=== PATIENT | male | born 1945 | race Caucasian/White ===

== ENCOUNTER → 2020-01-08 15:39 | Outpatient (BNVA) | payer MEDICARE, OTHER, SELFPAY | PROVIDERS: Family Provider Family Medicine; Visit Provider Nurse Practitioner Family | DX: Z11.59 Encounter for screening for other viral diseases (principal); Z20.828 Contact with and (suspected) exposure to other viral communicable diseases | CPT/HCPCS: 87635 ==

== ENCOUNTER 2020-01-10 12:06 | Emergency (ER) | payer MEDICARE, OTHER, SELFPAY ==
[2020-01-10 12:22] VITALS: BP 180/104; PULSE 82; RESP 20; TEMP 37.4; O2SAT 94; BMI 25.8
--- NOTE | 2020-01-10 12:30 | PC.NURSE ---
GENERALIZED BODY ACHES. STATES I HURT ALL OVER,NO ENERGY, TIRED ALL THE TIME.
[2020-01-10 12:45] VITALS: BP 177/110; PULSE 76; RESP 18; TEMP 37.4; O2SAT 94
--- NOTE | 2020-01-10 13:00 | XR_ITS ---
WS: [id number] XR chest 1V portable [id number] REASON FOR EXAM: cough, fever,SOB FINDINGS: Interstitial changes are noted bilaterally these are accentuated since previous exam and heard spect most likely bronchitis changes. The heart and mediastinum were normal. There is arteriosclerotic changes in the arch of the aorta. The hilum and apices are normal. No osseous abnormalities. XR/XR chest 1V portable [id number] IMPRESSION: Findings suggesting acute bronchitis.
--- NOTE | 2020-01-10 13:02 | W.ED.FEVER ---
HPI - Fever General: Chief Complaint: Fever Stated Complaint: FEVER/ FEELS SICK /TESTED FOR COVID TODAY Time Seen by Provider: 01/10/20 12:36 History of Present Illness: HPI Narrative: Patient is a 74-year-old gentleman who presents to the emergency department with fevers, generalized body aches, joint aches and feeling quite weak for about 5 or 6 days. Symptoms started shortly after he had multiple tick bites with a couple of ticks embedded in his skin which could not reach so slept overnight with it and had his son remove them the following day. He has also traveled out of state but is not aware of contact with anyone with COVID 19. He was tested 2 days ago for the COVID-19 in an outpatient clinic but has not received the results. MD elicited complaint: fever Onset (ago): day(s) (5) Context: recent travel Exacerbating factors: nothing Relieving factors: nothing Associated symptoms: Reports chills, chest pain, cough (he also has cough at baseline) and myalgias; Deny flank pain, dysuria, headache(s), nasal congestion, nausea, night sweats, rash, rhinorrhea or short of breath Review of Systems General: Reports: 10 or more systems reviewed and unremarkable except in HPI and below Const: Reports: chills; Denies: night sweats Eyes: Denies: change in vision or blurry vision ENMT: Denies: nasal congestion Card: Reports: chest pain; Denies: palpitations, irregular heart rhythm, edema or swelling of feet/ankles Resp: Denies: dyspnea, productive cough or non-productive cough GI: Denies: nausea : Denies: flank pain, dysuria, urinary frequency, urinary urgency or urinary hesitancy Musc: Reports: joint pain and muscle cramps; Denies: neck pain, back pain or extremity swelling Skin/Breast: Denies: rash, pruritus or erythema Neuro: Denies: headache(s), numbness in extremities or weakness in extremities Endo: Denies: polyuria, polydipsia or tired all the time PFSH ED PFSH: Social History Smoking and tobacco status: current every day smoker Physical Exam Const: COMMON NORMALS: no acute distress, average body habitus, patient oriented x3, no limitations, healthy appearing, alert and well nourished HENMT: COMMON NORMALS: normocephalic, atraumatic and moist oral mucous membranes HEAD & SCALP: normocephalic and atraumatic Eye: COMMON NORMALS: Equal, round and reactive pupils present, EOMs intact bilaterally, conjunctivae normal and no scleral icterus CONJUNCTIVA: Yes conjunctivae normal PUPIL: Yes Equal, round and reactive pupils present Neck/C-Spine: COMMON NORMALS: full ROM, supple, no meningeal signs, no JVD and No carotid bruits Chest: COMMONS NORMALS: normal inspection of the chest Resp: COMMON NORMALS: normal respiratory effort, No retractions, No use of accessory muscles and percussion normal AUSCULTATION: rales bilateral 1/[address] up PERCUSSION: percussion normal Cardio: COMMON NORMALS: no JVD, regular rate, regular rhythm, S1 normal heart sound present, S2 normal heart sound present, No gallops present (Cardio), No clicks present (Cardio), No murmurs present (Cardio), No rub (Cardio) and Peripheral pulses 2+ throughout RATE: regular rate RHYTHM: regular rhythm HEART SOUNDS: S1 normal heart sound present and S2 normal heart sound present PERIPHERAL PULSES: Peripheral pulses 2+ throughout GI: COMMON NORMALS: Normal to inspection, nondistended, normoactive bowel sounds present, Soft to palpation, non-tender, No hepatosplenomegaly present, no masses and no bruits PALPATION: Yes Soft to palpation and Yes No hepatosplenomegaly present : COMMON NORMALS: Yes no CVA tenderness BLADDER/KIDNEY EXAM: Yes no CVA tenderness Back/Pelvis: COMMON NORMALS: no CVA tenderness Extremity: COMMON NORMALS: normal to inspection, full ROM, capillary refill normal, no calf tenderness and no pedal edema Neuro: COMMON NORMALS: patient oriented x3 SENSORIUM/ORIENTATION: Yes alert MENINGEAL SIGNS: Yes no meningeal signs Skin: COMMON NORMALS: no rashes or lesions noted, no wounds, turgor normal, no jaundice, no petechiae and no mottling GENERAL SKIN EXAM: no rashes or lesions noted and turgor normal Course Reevaluation(s): Reevaluation #1: His lab and imaging findings with him. Negative influenza, negative chest x-ray. His lab work however is pretty consistent with a tickborne illness-leukopenia, thrombocytopenia, elevated liver enzymes. He will be treated with doxycycline while we wait for the results of the tick panel. He is strongly advised to return for any concerns especially if his symptoms worsen. Patient and his daughter voiced understanding and all questions answered. Time: 15:22 Vital Signs: Vital signs: Vital Signs Temperature 98.7 F 01/10/20 15:36 Pulse Rate 68 01/10/20 15:36 Respiratory Rate 16 01/10/20 15:36 Blood Pressure 160/87 01/10/20 15:36 Pulse Oximetry 95 01/10/20 15:36 MDM - Fever MDM Narrative: Medical decision making narrative: 74-year-old gentleman who presents with generalized body aches, myalgias, arthralgias, low-grade fever. He had been tested for COVID-19 2 days ago but the results are still not available. He has recent exposure to tick bites and his lab values are suggestive of a tickborne illness with leukopenia, thrombocytopenia, and elevated liver enzymes. He is being treated as a case of tickborne illness with oral doxycycline. Tick panel was sent off he will be called with the results of his labs. He is advised to follow-up with his primary care provider or return for any concerns Medical Records: Attestation: I reviewed the patient's medical records. Lab Data: Attestation: I reviewed the patient's lab results. Labs: Lab Results 01/10/20 01/10/20 01/10/20 Range/Units 13:10 13:10 13:10 WBC 2.7 L (4.0-10.0) 10^3/ uL RBC 4.76 (4.1-5.3) 10^6/u L Hgb 15.3 (11.7-16.6) g/dL Hct 44.4 (42.0-52.0) % MCV 93.3 (80-94) fL MCH 32.1 (28.0-34.0) pg MCHC 34.5 (30.0-36.0) g/dL RDW 14.6 (12.1-15.1) % Plt Count 110 L (130-400) 10^3/c mm MPV 10.4 (7.4-10.4) fL Nucleated RBC % (a uto) 0 % Total Counted 100 (0-100) Atypical Lymphs % 16.0 H (0-5) % Segmented Neutroph ils 100 % Abs Segm Neuts (Ma n) 2.7 (1.6-7.1) 10/cmm Absolute Lymphocyt es 0.8 L (1.2-3.4) 10^3/c mm Lymphocytes (Manua l) 14 % Monocytes (Manual) 3.0 % Absolute Monocytes 0.1 (0.1-0.6) 10^3/c mm Nucleated RBCs # 0.0 /100WBC Platelet Estimate Decreased (Normal) Giant Platelets Trace Sodium 131 L (136-145) mmol/L Potassium 4.0 (3.5-5.1) mmol/L Chloride 93 L (98-107) mmol/L Carbon Dioxide 25 (22-29) mmol/L Anion Gap 17.0 (5-19) BUN 17 (8-23) mg/dL Creatinine 0.7 (0.7-1.2) mg/dL GFR Calculation Not Reportable Glucose 131 H (65-115) mg/dL Calculated Osmolal ity 270 L (285-295) mOsm/k g Lactate 1.2 (0.5-2.2) mmol/L Calcium 9.0 (8.5-10.5) mg/dL Total Bilirubin 1.2 (0.15-1.2) mg/dL AST 276 H (0-40) U/L ALT 328 H (0-41) U/L Alkaline Phosphata se 208 H (40-130) IU/L C-Reactive Protein 73.5 H (0.0-4.9) mg/L Total Protein 6.1 L (6.6-8.7) g/dL Albumin 3.3 L (3.5-5.2) g/dL Globulin 2.8 (1.3-4.6) g/dL Procalcitonin 0.41 (0-0.5) ng/mL Urine Color (Yellow) Urine Appearance (CLEAR) Urine pH (5-7) Ur Specific Gravit y (1.005-1.030) Urine Protein (Negative) Urine Glucose (UA) (Normal) Urine Ketones (Negative) Urine Blood (Negative) Urine Nitrate (Negative) Urine Bilirubin (NEGATIVE) Urine Urobilinogen (Negative) mg/dL Ur Leukocyte Aurora ase (Negative) Influenza Type A A g (Negative) Influenza Type B A g (Negative) 06/03/20 06/03/20 Range/Units 13:16 13:48 WBC (4.0-10.0) 10^3/ uL RBC (4.1-5.3) 10^6/u L Hgb (11.7-16.6) g/dL Hct (42.0-52.0) % MCV (80-94) fL MCH (28.0-34.0) pg MCHC (30.0-36.0) g/dL RDW (12.1-15.1) % Plt Count (130-400) 10^3/c mm MPV (7.4-10.4) fL Nucleated RBC % (a uto) % Total Counted (0-100) Atypical Lymphs % (0-5) % Segmented Neutroph ils % Abs Segm Neuts (Ma n) (1.6-7.1) 10/cmm Absolute Lymphocyt es (1.2-3.4) 10^3/c mm Lymphocytes (Manua l) % Monocytes (Manual) % Absolute Monocytes (0.1-0.6) 10^3/c mm Nucleated RBCs # /100WBC Platelet Estimate (Normal) Giant Platelets Sodium (136-145) mmol/L Potassium (3.5-5.1) mmol/L Chloride (98-107) mmol/L Carbon Dioxide (22-29) mmol/L Anion Gap (5-19) BUN (8-23) mg/dL Creatinine (0.7-1.2) mg/dL GFR Calculation Glucose (65-115) mg/dL Calculated Osmolal ity (285-295) mOsm/k g Lactate (0.5-2.2) mmol/L Calcium (8.5-10.5) mg/dL Total Bilirubin (0.15-1.2) mg/dL AST (0-40) U/L ALT (0-41) U/L Alkaline Phosphata se (40-130) IU/L C-Reactive Protein (0.0-4.9) mg/L Total Protein (6.6-8.7) g/dL Albumin (3.5-5.2) g/dL Globulin (1.3-4.6) g/dL Procalcitonin (0-0.5) ng/mL Urine Color [place] (Yellow) Urine Appearance Clear (CLEAR) Urine pH 6.5 (5-7) Ur Specific Gravit y 1.015 (1.005-1.030) Urine Protein Neg (Negative) Urine Glucose (UA) Norm (Normal) Urine Ketones Negative (Negative) Urine Blood Neg (Negative) Urine Nitrate Negative (Negative) Urine Bilirubin 1+ H (NEGATIVE) Urine Urobilinogen 8 H (Negative) mg/dL Ur Leukocyte Aurora ase Negative (Negative) Influenza Type A A g Negative (Negative) Influenza Type B A g Negative (Negative) Imaging Data^: CXR: Radiologist's impression: [address] [address] XRay Report Signed Patient: Odilon Mendoza #: [id number] : 7Acct#:[id number] Age/Sex: 74 / MADM Date: 01/10/20 [facility] Attending Dr: Ordering Provider/Ordering MD: Rhonda Ortega [place] [facility] [place] of Service: 01/10/20 Procedure(s): XR chest 1V portable [id number] Accession Number(s): [id number] Report Number: [id number] WS: [id number] XR chest 1V portable [id number] REASON FOR EXAM: cough, fever,SOB FINDINGS: Interstitial changes are noted bilaterally these are accentuated since previous exam and suspect most likely bronchitis changes. The heart and mediastinum were normal. There is arteriosclerotic changes in the arch of the aorta. The hilum and apices are normal. No osseous abnormalities. XR/XR chest 1V portable [id number] IMPRESSION: Findings suggesting acute bronchitis. Dictated By:Selwyn Poole DO Signed By:Selwyn Poole DOSigned Date/Time:01/10/20 132 DD/ 132 Discharge Plan Discharge Patient Disposition: Home, Self-Care Clinical Impression: At high risk for tick borne illness, Thrombocytopenia, Elevated liver enzymes Tick bite of back Qualifiers: Encounter type: initial encounter Qualified Code(s): S30.860A - Insect bite (nonvenomous) of lower back and pelvis, initial encounter Leukopenia Qualifiers: Leukopenia type: unspecified Qualified Code(s): D72.819 - Decreased white blood cell count, unspecified Condition: Stable Prescriptions: New doxycycline hyclate 100 mg capsule 100 mg PO BID 14 Days Qty: 28 RF: 0 Discharge Orders: Discharge Order (Routine); Ordered 01/10/20 Ordered By: Rhonda rOtega Referrals: Odilon Monae MD [Family Provider] - 1-3 days Patient Instructions: Tick Bite (ED) Activity Restrictions/Additional Instructions: Return for any new or worsening symptoms. Take the medication as prescribed. The medication causes sun sensitivity so avoid bright sunlight as much as he can. Take Tylenol and ibuprofen as needed for pain. Follow-up with your primary care provider within 3 days. Discharge Date/Time: 01/10/20 15:43 Coding Level of Care Code ED Hoop Maker Machine for Gallog Fwd Exam Comprehensive
[2020-01-10 13:20] LABS: Hematocrit 44.4 % (42.0-52.0); Hemoglobin 15.3 g/dL (11.7-16.6); Mean Corpuscular HGB Conc 34.5 g/dL (30.0-36.0); Mean Corpuscular Hemoglobin 32.1 pg (28.0-34.0); Mean Corpuscular Volume 93.3 fL (80-94); Mean Platelet Volume 10.4 fL (7.4-10.4); Nucleated Red Blood Cells % 0 %; Platelet Count 110 10^3/cmm (130-400); Red Blood Count 4.76 10^6/uL (4.1-5.3); Red Cell Distribution Width 14.6 % (12.1-15.1); White Blood Count 2.7 10^3/uL (4.0-10.0)
[2020-01-10 13:41] LABS: Lactate (Lactic Acid level) 1.2 mmol/L (0.5-2.2)
[2020-01-10 13:45] VITALS: BP 160/109; PULSE 89; RESP 16; TEMP 38; O2SAT 93
[2020-01-10 13:45] LABS: Procalcitonin 0.41 ng/mL (0-0.5)
[2020-01-10 13:51] LABS: Slide Review Slide Review Perform
[2020-01-10 13:55] LABS: Total Cells Counted 100 (0-100)
[2020-01-10 13:56] LABS: Absolute Segmented Neutrophil 2.7 10/cmm (1.6-7.1); Alanine Aminotransferase 328 U/L (0-41); Albumin Level 3.3 g/dL (3.5-5.2); Alkaline Phosphatase 208 IU/L (40-130); Aspartate Amino Transferase 276 U/L (0-40); Blood Urea Nitrogen 17 mg/dL (8-23); C Reactive Protein 73.5 mg/L (0.0-4.9); Carbon Dioxide 25 mmol/L (22-29); Chloride 93 mmol/L (98-107); Creatinine Clr Calc Pharmacy 84.8635; Globulin 2.8 g/dL (1.3-4.6); Glucose 131 mg/dL (65-115); Lymphocytes 14 %; Lymphocytes Absolute 0.8 10^3/cmm (1.2-3.4); Monocytes Absolute 0.1 10^3/cmm (0.1-0.6); Osmolality Calculated 270 mOsm/kg (285-295); Segmented Neutrophils 100 %; Sodium 131 mmol/L (136-145); Total Bilirubin 1.2 mg/dL (0.15-1.2); Total Protein 6.1 g/dL (6.6-8.7)
[2020-01-10 13:57] LABS: Platelet Estimate Decreased (Normal)
[2020-01-10 13:58] LABS: Giant Platelets Trace
[2020-01-10 13:58] LABS: Add Urine Microscopic? NO
[2020-01-10 14:11] LABS: Bilirubin Urine 1+ (NEGATIVE); Blood Urine Neg (Negative); Glucose Urine UA Norm (Normal); Ketones Urine Negative (Negative); Leukocyte Esterase Urine Negative (Negative); Nitrate Urine Negative (Negative); Protein Urine Neg (Negative); Specific Gravity, Urine 1.015 (1.005-1.030); Urine Appearance Clear (CLEAR); Urine Color Orange (Yellow); Urobilinogen Urine 8 mg/dL (Negative); pH Urine 6.5 (5-7)
[2020-01-10 14:15] LABS: Influenza A by IFA Negative (Negative); Influenza B by IFA Negative (Negative)
[2020-01-10] MEDS: doxycycline 100 mg Tablet PO (14:59)
[2020-01-10] MEDS: acetaminophen 500 mg Tablet PO (14:59)
[2020-01-10 15:02] VITALS: BP 166/91; PULSE 68; RESP 165; TEMP 38; O2SAT 94
[2020-01-10 15:36] VITALS: BP 160/87; PULSE 68; RESP 16; TEMP 37.1; O2SAT 95
[2020-01-11 11:46] LABS: Lyme AB Screen <0.90 index
[2020-01-13 21:51] LABS: RMSF IGG NOT DETECTED; RMSF IGM NOT DETECTED
[2020-01-13 22:32] LABS: E. Chaffeensis AB IGG <1:64; E. Chaffeensis AB IGM <1:20
== END 2020-01-10 15:43 | disposition home or self-care (01) ==
PROVIDERS: Emergency Provider Family Medicine; Family Provider Family Medicine
DX: S30.860A Insect bite (nonvenomous) of lower back and pelvis, initial encounter (principal); W57.XXXA Bitten or stung by nonvenomous insect and other nonvenomous arthropods, initial encounter; D72.819 Decreased white blood cell count, unspecified; D69.6 Thrombocytopenia, unspecified; R74.8 Abnormal levels of other serum enzymes; F17.210 Nicotine dependence, cigarettes, uncomplicated
CPT/HCPCS: 12345; 36415; 71045; 80053; 81003; 83605; 84145; 85007; 85025; 86140; 87040; 87804; 99283

== ENCOUNTER 2020-05-09 09:53 | Outpatient (CLI) | payer MEDICARE, OTHER, SELFPAY ==
--- NOTE | 2020-05-09 10:03 | CT_ITS ---
WS: [id number] CT ABDOMEN PELVIS TECHNIQUE: Contrast-enhanced CT of the abdomen and pelvis with coronal and sagittal reformatted image s. CLINICAL INFORMATION: FLANK PAIN, RIGHT, TRANSAMINASES, SERUM, ELEVATED COMPARISON: None. DLP: [address] scans at [facility] use at least one of these dose optimization techniques: automat ed exposure control; mA and/or kV adjustment per patient size (includes targeted exams where dose is matched to clinical indication); or iterative reconstruction. FINDINGS: Multiple solid heterogeneously enhancing lesions in both hepatic lobes. Largest lesions in the left h epatic lobe measures 3.7 x 4.5 cm and in the right inferior hepatic lobe measuring 5.1 x 6.2 x 10.5 c m. Numerous tiny low-attenuation lesions about the right inferior hepatic lesion with biliary duct di latation. Additional smaller hepatic lesions in the right hepatic lobe laterally. Numerous additional miniscule low-attenuation lesions too small to characterize. Findings are suspicious for metastatic disease. Enlargement of the right hepatic lobe. Normal GE junction. Lung bases are well aerated. Pancreas is normal in appearance. Normal pancreatic head. Gallbladder is contracted. Normal portal vein and splenic vein. Small splenule. Adrenal glands are normal. No hydronephrosis. Small renal cysts. Normal caliber abdominal aorta. Aortic calcificatio n. Sigmoid diverticulosis. Prostate calcification. Sigmoid colon diverticulum with inspissated secretion s measuring 2.1 x 2.2 CM. This may be due to prior diverticulitis with localized perforation. No evid ence of acute diverticulitis today. No evidence of small or large bowel obstruction. Sclerosis right sacroiliac joint. Fat-containing umbilical hernia. CT/CT abdomen pelvis w con* [id number] IMPRESSION: 1. Hepatomegaly with numerous solid heterogeneously enhancing lesions the larg est in the right hepatic lobe inferiorly measuring 5.1 x 6.2 x 10.5 CM. Finding s suspicious for metastatic disease or possibly primary hepatic malignancy. 2. No abdominal or pelvic lymphadenopathy. 3. Sigmoid diverticulosis with enlarged diverticulum measuring 2.2 x 2.1 cm li fernando sequelae of prior diverticulitis with contained perforation. No evidence o f acute diverticulitis today. Colon can be further evaluated with colonoscopy. 4. No evidence of small or large bowel obstruction. Slightly prominent prostat e with calcification measuring 4.1 cm. Notified Odilon Monae MD at 05/09/2020 11:17 AM.
[2020-05-09 10:40] LABS: Blood Urea Nitrogen 16 mg/dL (8-23)
[2020-05-09] MEDS: iohexol 300 mg/mL 100 mL Btl IV (10:46)
== END 2020-05-09 09:54 | disposition home or self-care (01) ==
LOC: RADWPI 10:02
PROVIDERS: Family Provider Family Medicine; PCP Family Medicine; Visit Provider Family Medicine
DX: R10.9 Unspecified abdominal pain (principal); R74.01 Elevation of levels of liver transaminase levels; R16.0 Hepatomegaly, not elsewhere classified; K57.30 Diverticulosis of large intestine without perforation or abscess without bleeding; N40.0 Benign prostatic hyperplasia without lower urinary tract symptoms; K57.90 Diverticulosis of intestine, part unspecified, without perforation or abscess without bleeding
CPT/HCPCS: 74177; 82565; 84520; Q9967

== ENCOUNTER 2020-05-13 09:22 | Outpatient (CLI) | payer MEDICARE, OTHER, SELFPAY ==
--- NOTE | 2020-05-13 09:31 | CT_ITS ---
WS: [id number] CT CHEST TECHNIQUE: Contrast enhanced CT of the chest with coronal and sagittal reformatted images. CLINICAL INFORMATION: CANCER METASTATIC TO LIVER/?SOURCE OF LIVER CANCER COMPARISON: CT abdomen pelvis May 09, 2020 DLP: 546.[address] scans at use at least one of these dose optimization techniques: automat ed exposure control; mA and/or kV adjustment per patient size (includes targeted exams where dose is matched to clinical indication); or iterative reconstruction. FINDINGS: Mild chronic emphysematous changes. Spiculated lesions in both upper lobes measuring 13.3 x 9.7 mm ri ght upper lobe and 8.7 x 7.0 mm left upper lobe. These lesions have a suspicious appearance and recom mend further evaluation with PET/CT. These lesions would be difficult to access with CT guided biopsy due to lung apex location. No other suspicious pulmonary parenchymal abnormalities. Aortic calcification. Coronary calcification. A few prominent anterior mediastinal and peribronchial lymph nodes. Normal GE junction. No axillary lymphadenopathy. Normal thoracic spine. Multiple metast atic lesions partially visualized in the right hepatic lobe as described on the abdomen pelvis CT. CT/CT chest w con* [id number] IMPRESSION: 1. 13.3 x 9.7 mm spiculated lesion right lung apex. Smaller similar-appearing lesion measuring 7.0 x 8.7 mm left lung apex. These lesions have a suspicious a ppearance. Recommend further evaluation with PET/CT. Location at the lung apex makes CT-guided biopsy difficult. 2. Prominent anterior mediastinal and peribronchial lymph nodes largest measur ing 8 mm. 3. No other suspicious lung parenchymal abnormalities. 4. Multiple metastatic lesions partially visualized in the liver unchanged sin ce the recent CT abdomen pelvis.
== END 2020-05-13 09:23 | disposition home or self-care (01) ==
LOC: RAD 09:23
PROVIDERS: Family Provider Family Medicine; PCP Family Medicine; Visit Provider Family Medicine
DX: C78.7 Secondary malignant neoplasm of liver and intrahepatic bile duct (principal); R59.0 Localized enlarged lymph nodes
CPT/HCPCS: 71260; Q9967

== ENCOUNTER 2020-05-23 11:54 | Outpatient (CLI) | payer MEDICARE, OTHER, SELFPAY ==
[2020-05-23] VITALS (10 sets, daily range): BP systolic 173–196; BP diastolic 94–111; PULSE 55–61; RESP 18; TEMP 36.4; O2SAT 97–100
--- NOTE | 2020-05-23 12:00 | US_ITS ---
WS: [id number] ULTRASOUND-GUIDED LIVER BIOPSY HISTORY: LIVER MASS Procedure, risks, and complications have been explained to the patient. Consent is obtained. Prior imaging studies are reviewed. Skin is cleansed with ChloraPrep and then anesthetized with 1% buffered lidocaine. Core biopsy is per formed with a 18 gauge Achieve needle. Specimen is placed within formalin. No complications encounter ed. Multiple specimens are obtained of the mass in the LEFT lobe of the liver. Mildly hyperechoic mass. A t least 4 - 18-gauge biopsies are performed. No complications encountered. US/US biopsy liver [id number] IMPRESSION: Uncomplicated liver biopsy. Final pathology results are pending.
[2020-05-23] MEDS: sodium chloride 0.9% 1,000 ML 30 ML IV (13:09)
[2020-05-23 13:27] LABS: INR 0.94 (0.8-1.2)
[2020-05-23] MEDS: fentaNYL 50 mcg/mL INJ 2mL 25 MCG IVP (13:57)
[2020-05-23] MEDS: midazolam 1 mg/mL INJ 2 mL IVP (13:59)
== END 2020-05-23 16:15 | disposition home or self-care (01) ==
PROVIDERS: Radiology Diagnostic Radiology; PCP Family Medicine; Visit Provider Family Medicine
DX: K76.89 Other specified diseases of liver (principal)
CPT/HCPCS: 36415; 47000; 76942; 85610; 88307; 96374; 96375; J2250; J3010; J7030

== ENCOUNTER 2020-06-17 10:13 | Outpatient (CLI) | payer OTHER, SELFPAY ==
[2020-06-17 12:21] LABS: Basophils % 0.2 %; Eosinophils # 0.1 10^3/uL (0.0-0.8); Eosinophils % 0.6 %; Hemoglobin 16.5 g/dL (11.7-16.6); Lymphocytes # 1.8 10^3/uL (0.8-4.8); Mean Corpuscular HGB Conc 33.7 g/dL (30.0-36.0); Mean Corpuscular Hemoglobin 32.4 pg (28.0-34.0); Mean Corpuscular Volume 96.3 fL (80-94); Monocytes # 0.6 10^3/uL (0.2-0.9); Neutrophils # 5.71 10^3/uL (1.8-7.7); Neutrophils % 69.7 %; Nucleated Red Blood Cells % 0 %; Platelet Count 379 10^3/cmm (130-400); Red Blood Count 5.09 10^6/uL (4.1-5.3); Red Cell Distribution Width 17.5 % (12.1-15.1); White Blood Count 8.2 10^3/uL (4.0-10.0)
[2020-06-17 12:29] LABS: INR 1.02 (0.8-1.2)
[2020-06-17 12:39] LABS: Alanine Aminotransferase 191 U/L (0-41); Albumin Level 3.3 g/dL (3.5-5.2); Alkaline Phosphatase 800 IU/L (40-130); Anion Gap 16.3 (5-19); Aspartate Amino Transferase 317 U/L (0-40); Blood Urea Nitrogen 24 mg/dL (8-23); Carbon Dioxide 25 mmol/L (22-29); Chloride 98 mmol/L (98-107); Globulin 3.6 g/dL (1.3-4.6); Glucose 88 mg/dL (65-115); Osmolality Calculated 283 mOsm/kg (285-295); Potassium 4.3 mmol/L (3.5-5.1); Sodium 135 mmol/L (136-145); Total Bilirubin 1.4 mg/dL (0.15-1.2); Total Protein 6.9 g/dL (6.6-8.7)
--- NOTE | 2020-06-18 17:32 | ONC FU_ITS ---
Dr. Kerr follow up note Patient: Odilon Mendoza Unit #: [id number]: [id number] Dicatated By: Dalia Kerr M.D.Date of Visit:Jun 17, 2020 Onc Med Follow-up/Prog Note History of Present Illness: Mr. Odilon Mendoza, is a 75-year-old gentleman who was in in his usual state of health until in January 2020 when he developed right upper quadrant pain and his routine labs shows abnormal LFTs, initially was thought it could be due to take fever, he was treated with antibiotics but without much improvement in his pain was progressive eventually on May 09, [address] scan of abdomen pelvis which showed hepatomegaly with numerous solid heterogeneously enhancing lesions the largest lesion in the right hepatic lobe inferiorly measuring 5.1 x 6.2 x 10.5 cm suspicious for metastatic disease or possibly primary hepatic malignancy. No abdominal or pelvic lymphadenopathy. Sigmoid diverticulosis with enlarged diverticulum measuring 2.2 x 2.1 cm. Slightly prominent prostate with calcification measuring 4.1 cm., Patient also had CT scan of chest done on May 13, 2020 which shows 13.3 x 9.7 mm spiculated lesion right lung apex. Similar but smaller appearing lesion measuring 7 x 8.7 mm in the left lung apex these lesions have suspicious appearance and location at the lung apex make CT-guided biopsy difficult. No other suspicious lung parenchymal abnormality seen. 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 Lab work-up done on May 10, 2020 shows PSA was 4.3, CEA was 0.5, alpha-fetoprotein was 22,823.3. And hepatitis panel was unremarkable Patient is complaining of severe pain in the right upper quadrant not being controlled with hydrocodone but denies any jaundice, denies any hemoptysis or hematemesis, denies any fever chills, denies any nausea or vomiting denies any abdominal fullness denies any increase in abdominal girth, denies any lower extremity edema. Medications: Ibuprofen 3 Tablet (of 200 mg) Capsule Oral t.i.d., Ondansetron HCl 1 Tablet (of 4 mg) Oral PRN, oxyCODONE HCl 1 Tablet (of 5 mg) Oral q 6 hours Allergies: No Known Allergies. Review of Systems: Constitutional - Appetite is diminished and weight is decreasing. No fever, night sweats, or hot flashes. Energy level is fair, ENMT - No sinus congestion/drainage. No mouth sores. No sore throat or difficulty swallowing, Hematologic/Lymphatic - No abnormal bruising or bleeding, Respiratory - No shortness of breath. Positive for cough. No pleuritic pain or hemoptysis, Cardiovascular - No angina pain. No palpitations, Gastrointestinal - No nausea or vomiting. No heartburn or acid reflux. No diarrhea or constipation. No blood in the stool or black stools. Positive for abdominal pain, Genitourinary (M) - No dysuria or hematuria. No urinary frequency. No urgency or incontinence, Musculoskeletal - No joint or bone pain, Neurologic - No headache or dizziness. No numbness or tingling. No other focal neurologic symptoms, Psychiatric - No anxiety or depression. No insomnia. Vital Signs: Performed on Jun 17, 2020 10:48 Height - 69.00 in Weight - 145.4 lbs (HIGH) BSA - 1.80 sq.m BMI - 21.47 Temperature - 97.6 F (LOW) Pulse - 91 /min Respiration - 20 /min BP - 160/110 mm(hg) (HIGH) O2 Sat - 98 % Pain - 4 Performance Status: 1 - No physically strenuous activity, but ambulatory and able to carry out light or sedentary work (e.g. office work, light house work). (ECOG) Physical Examination: ENMT - No mouth sores, no thrush, no jaundice, Respiratory - Lungs are clear to auscultation, Cardiovascular - Regular rate and rhythm of heart, Abdomen - Soft, bowel sounds present, liver is palpable below right costal margin and tender to deep palpation, Extremities - No visible edema. Lab/Imaging: Test performed on Jun 17, 2020 11:55 Sodium 135 mmol/L Potassium 4.3 mmol/L Chloride 98 mmol/L CO2 25 mmol/L Anion Gap 16.3 BUN 24 mg/dL Creatinine 0.5 mg/dL Cr Clearance (Est) 122.7500 mL/min Glucose 88 mg/dL Osmolality - Calculated 283 mOsm/kg Calcium 9.0 mg/dL Protein, Total 6.9 g/dL Albumin 3.3 g/dL Globulin 3.6 g/dL Bilirubin, Total 1.4 mg/dL ALT (SGPT) 191 U/L AST (SGOT) 317 U/L Alkaline Phosphatase 800 IU/L PT 13.70 SECONDS WBC 8.2 10 3/uL INR 1.02 RBC 5.09 10 6/uL HGB 16.5 g/dL HCT 49.0 % MCV 96.3 fL MCH 32.4 pg MCHC 33.7 g/dL RDW 17.5 % Platelet Count 379 10 3/cmm MPV 10.0 fL Neutrophils 5.71 10 3/uL Lymphocytes 1.8 10 3/uL Monocytes 0.6 10 3/uL Eosinophils 0.1 10 3/uL Basophils 0.0 10 3/uL Neutrophil % 69.7 % Lymphocyte % 22.0 % Monocyte % 7.0 % Eosinophil % 0.6 % Basophils % 0.2 % NRBC % 0 % Impression: Hepatocellular carcinoma per liver biopsy done on May 23, 2020 immunohistochemistry positive for vimentin, CD34, AFP Negative for CEA, TTF-1, CDX2, SOX-10, RCC, p63, CK20, PSA Ki-67, 5 to 10% proliferation index. CT scan of abdomen pelvis done on May 09, 2020 showed hepatomegaly with numerous solid heterogeneous enhancing lesions the largest in the right hepatic lobe inferiorly measuring 5.1 x 6.2 x 10.5 cm, no abdominal pelvic lymphadenopathy, normal portal vein and splenic vein, small splenule. Sigmoid diverticulosis within large diverticulum measuring 2.[address] scan of chest done on May 13, 2020 showed bilateral apical spiculated lesion 13.3 x 9.7 mm in the right and 7 x 8.7 mm in the left. No other abnormality seen. 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 low albumin or elevated PT/INR or bilirubin., Discussed with patient and his daughter in detail and we will consider referral to GI oncology at [place] for evaluation regarding local regional treatment e.g. TACE or embolization, if lab work-up confirmed he has child Velasco class A disease and not a candidate for location of treatment then we may consider sorafenib or lenvetinib. As far as right upper quadrant pain is concerned, is not being controlled with hydrocodone so we will add morphine long-acting 30 mg p.o. every 12 hours and he will take hydrocodone for breakthrough. And he was a also advised to watch for constipation due to narcotics and take milk of magnesia on as-needed basis. Patient return to clinic 1 week after evaluation at [facility] in the meantime will obtain CBC CMP and PT/INR Signed By: Dalia Kerr M.D. <<Signature on File>>
== END 2020-06-17 10:14 | disposition home or self-care (01) ==
LOC: ONCMED 10:16
PROVIDERS: PCP Family Medicine; Visit Provider Internal Medicine Hematology & Oncology
DX: C22.9 Malignant neoplasm of liver, not specified as primary or secondary (principal); K57.30 Diverticulosis of large intestine without perforation or abscess without bleeding; K74.69 Other cirrhosis of liver; Z79.899 Other long term (current) drug therapy
CPT/HCPCS: 36415; 80053; 85025; 85610; 99203